=== PATIENT | male | born 1955 | race Caucasian/White ===

== ENCOUNTER 2016-09-27 13:25 | Emergency (ER) | payer SELFPAY ==
[~2016-09-27] VITALS: Ht 177.8 cm; Wt 89.1 kg
[2016-09-27 13:46] VITALS: Ht 177.8 cm; Wt 89.1 kg
[2016-09-27] MEDS ORDERED: traMADol 50 MG TAB PO ONE (16:00)
--- NOTE | 2016-09-27 16:19 | ERD ---
ER Documentation Chief Complaint Date/Time DATE: 09/27/16 TIME: 16:18 Chief Complaint back pain x 2 mos, twisted body HPI This is a 61-year-old male who presents to the emergency department today complaining of left knee pain and low back pain for the past 3 months. Patient states he initially fell down some stairs when his knee gave out and landed on his back. He is taking some sort of medication for inflammation. Denies any fevers or chills, loss of bowel or bladder control. He does not have a primary care physician. ROS All systems reviewed and are negative except as per history of present illness. Medications Home Meds Active Scripts Tramadol HCl (Tramadol HCl) 50 Mg Tablet, 50 MG PO Q4 Y for PAIN, #20 TAB Prov:KHUSHBU SOTELO PA-C 09/27/16 Naproxen* (Naprosyn*) 500 Mg Tablet, 500 MG PO BID Y for PAIN AND/OR INFLAMMATION, #30 TAB Prov:KHUSHBU SOTELO PA-C 09/27/16 PMhx/Soc Hx Cardiac Disorders: Yes (HNT) Hx Alcohol Use: No Hx Substance Use: No Hx Tobacco Use: No Physical Exam Vitals Vital Signs Date Time Temp Pulse Resp B/P Pulse Ox O2 Delivery O2 Flow Rate FiO2 09/27/16 13:46 98.1 89 18 131/89 99 Physical Exam Const: Head: Atraumatic Eyes: Normal Conjunctiva ENT: Normal External Ears, Nose and Mouth. Neck: Full range of motion..~ No meningismus. Resp: Clear to auscultation bilaterally Cardio: Regular rate and rhythm, no murmurs Abd: Soft, non tender, non distended. Normal bowel sounds Skin: No petechiae or rashes Back: No midline or flank tenderness MSK: Left knee was normal his deformity. No effusion. No ecchymosis. Active range of motion. Pulses 2+. Distal neurovascularly intact. Neur: Awake and alert Psych: Normal Mood and Affect Results 24 hrs Current Medications Medications (Trade) Dose Ordered Sig/Nicolas Route PRN Reason Start Time Stop Time Status Last Admin Dose Admin Tramadol HCl (Ultram) 50 mg ONCE ONCE PO 09/27/16 16:00 09/27/16 16:01 DC 09/27/16 15:58 DIAGNOSTIC IMAGING REPORT Patient: URKARLY PRESLEY : 1955 Age: 61 Sex: M MR #: [id number] DOS: 09/27/16 0000 Ordering MD: KHUSHBU SOTELO PA-C Location: [facility] Room/Bed: PROCEDURE: Left knee radiographs. CLINICAL INDICATION: Trauma. Left knee pain. TECHNIQUE: Three views. Weight bearing. Frontal, lateral, and oblique. COMPARISON: No prior studies are available for comparison. FINDINGS: There is no fracture or dislocation. The soft tissues are normal. Articular surfaces are intact. There is no lytic or blastic lesion. There is no radiopaque foreign body. IMPRESSION: 1. Normal images of the left knee. RPTAT: QQ .Vinay Worthy MD, MD Date Time Electronically viewed and signed by .Vinay Worthy MD, MD on 09/27/2016 16:24 .R/ CC: KHUSHBU SOTELO PA-C DIAGNOSTIC IMAGING REPORT Patient: KARLY GOMEZ : 1955 Age: 61 Sex: M MR #: [id number] DOS: 09/27/16 0000 Ordering MD: KHUSHBU SOTELO PA-C Location: [facility] Room/Bed: PROCEDURE: XR Lumbar Spine. CLINICAL INDICATION: Trauma. Back pain. TECHNIQUE: Three views. AP, lateral and cone-down lateral view of the lumbar spine were obtained. COMPARISON: No prior studies are available for comparison. FINDINGS: There is normal stature and alignment of the vertebrae. There is no fracture. There is no lytic or blastic lesion. The disk height is normal. Small osteophytes are present at L3-4 and L4-5. The paravertebral soft tissues are unremarkable. IMPRESSION: 1. Mild degenerative change. 2. Otherwise unremarkable images of the lumbar spine. RPTAT: QQ .Vinay Worthy MD, MD Date Time Electronically viewed and signed by .Vinay Worthy MD, on 09/27/2016 16:24 .R/ CC: KHUSHBU SOTELO PA-C Procedures/MDM This is a 61-year-old male male who presents to the residents apparently today complaining of low back pain as well as left knee pain. Past treatments. Patient indicated he initially fell down a set of stairs. Given that there was trauma I did obtain images. The radiology report images of the knee are unremarkable. There is no acute fracture or dislocation. Articular surfaces are intact. As of the lumbar spine show mild degenerative changes. There is no acute fracture or dislocation. There are small osteophytes present L3 and 4 and L4 and 5. Symptoms at this time appear acute on chronic back pain.. There is no erythema or warmth and low suspicion for septic joint or gout. Patient is afebrile and otherwise well-appearing.He has no loss of bowel or bladder control. No cauda equina or abscess. Patient's symptoms at this time is considered with strain versus sprain presents contusion of the knee. At this time I cannot rule out cartilage or ligament pathology. I have explained this to the patient. I have explained to the patient that he may need further workup and evaluation for orthopedics for further evaluation with an MRI. Patient understood. Patient was given tramadol here in the emergency department. I will give him a short course for home as well as Naprosyn. Vision is ambulating and I do not believe he needs a knee immobilizer or crutches. At this time the patient is stable for discharge and outpatient management. Patient should follow up with their PCP in the next 1-2 days. They may return to the emergency department sooner for any persistent or worsening of symptoms. Patient understood and agreed with the plan. Departure Diagnosis: Primary Impression: Back pain Back pain location: low back pain Chronicity: chronic Back pain laterality : bilateral Sciatica presence: without sciatica Qualified Code: M54.5 - Chronic bilateral low back pain without sciatica Additional Impression: Knee pain, left Chronicity: chronic Qualified Code: M25.562 - Chronic pain of left knee Condition: Fair KHUSHBU SOTELO PA-C Sep 27, 2016 16:19
[2016-09-27] MEDS ORDERED: TRAM50TA2 PO (16:24)
[2016-09-27] MEDS ORDERED: NAPR-260 PO (16:24)
--- NOTE | 2016-09-27 16:24 | RADRPT ---
PROCEDURE: XR Lumbar Spine. CLINICAL INDICATION: Trauma. Back pain. TECHNIQUE: Three views. AP, lateral and cone-down lateral view of the lumbar spine were obtained. COMPARISON: No prior studies are available for comparison. FINDINGS: There is normal stature and alignment of the vertebrae. There is no fracture. There is no lytic or blastic lesion. The disk height is normal. Small osteophytes are present at L3-4 and L4-5. The paravertebral soft tissues are unremarkable. IMPRESSION: 1. Mild degenerative change. 2. Otherwise unremarkable images of the lumbar spine. RPTAT: QQ .Vinay Worthy MD, Date Time Electronically viewed and signed by .Vinay Worthy MD, on 09/27/2016 16:24 .R/
--- NOTE | 2016-09-27 16:25 | RADRPT ---
PROCEDURE: Left knee radiographs. CLINICAL INDICATION: Trauma. Left knee pain. TECHNIQUE: Three views. Weight bearing. Frontal, lateral, and oblique. COMPARISON: No prior studies are available for comparison. FINDINGS: There is no fracture or dislocation. The soft tissues are normal. Articular surfaces are intact. There is no lytic or blastic lesion. There is no radiopaque foreign body. IMPRESSION: 1. Normal images of the left knee. RPTAT: QQ .Vinay Worthy MD, MD Date Time Electronically viewed and signed by .Vinay Worthy MD, MD on 09/27/2016 16:24 .R/
== END 2016-09-27 17:13 | disposition home or self-care (01) ==
LOC: FTE 13:25
DX: S39.92XA Unspecified injury of lower back, initial encounter (principal); S89.92XA Unspecified injury of left lower leg, initial encounter; I10 Essential (primary) hypertension; W10.9XXA Fall (on) (from) unspecified stairs and steps, initial encounter; Y92.9 Unspecified place or not applicable
CPT/HCPCS: 72100; 73562